=== PATIENT | male | born 1965 | race Hispanic/Latino ===

== ENCOUNTER → 2018-06-25 | Day surgery (SDC) | payer OTHER ==
[2018-06-23 14:33] LABS: ANION GAP 12.8 mmol/L (8-16); CALCIUM 10.1 mg/dL (8.4-10.2); CREATININE, SERUM 1.36 mg/dL (0.72-1.25); POTASSIUM 4.8 mmol/L (3.5-5.1)
[~2018-06-25] MED LIST: CEFTRIAXONE SOD 1 GM VIAL ONE; DEXAMETHASONE SOD PHOS INJ 4 MG/ML VIAL ONE; DEXTROSE 5% 250ML 250 ML IV ONE; EPHEDRINE SULFATE INJ 50 MG/10 ML SYR ONE; FARXIGA PO; FENTANYL CITRATE/PF 100MCG/2 ML INJ ONE; GLIMEPIRIDE2 MG PO; LIDOCAINE HCL 2% LOCAL INJ 5 ML SDV VIAL INJ ONE; LOSARTAN POTASS25 MG PO; LOVASTATIN40 MG PO; METFORMIN HCL850 MG PO; MIDAZOLAM HCL 2 MG/2 ML VIAL ONE; OMEPRAZOLE40 MG PO; ONDANSETRON HCL INJ 2 MG/ML VIAL ONE; PIOGLITAZONE HC45 MG PO; PROPOFOL IV EMULSION 10 MG/ML 20 ML VIAL ONE; ROCURONIUM BROMIDE 10 MG/ML 5ML VIAL ONE; SEVOFLURANE INHAL SOLN 250 ML PEN BTL ONE
--- NOTE | 2018-06-25 07:27 | Diagnostic Imaging Report ---
PROCEDURE:X-RAY ABDOMEN - KUB COMPARISON:None. INDICATIONS:RIGHT URETERAL STONE FINDINGS: There is a 4 mm calcification overlying the left kidney, which may represent a stone. No evidence of stone overlying the expected course of the ureters. Calcifications overlying the pelvis likely represent calcified phleboliths. Non-obstructive bowel gas pattern. No evidence of free intraperitoneal air. No acute bony abnormality. CONCLUSION: Possible 4 mm left renal stone. Likely calcified phleboliths in the pelvis without definite ureteral stone. Dictated by: MALAIKA LUTHER M.D. on 06/25/2018 at 7:35 Electronically approved by: MALAIKA LUTHER M.D. on 06/25/2018 at 7:35
--- NOTE | 2018-06-25 08:51 | Operative Report ---
DATE OF PROCEDURE: June 25, 2018 PREOPERATIVE DIAGNOSIS: Right ureteral stone. POSTOPERATIVE DIAGNOSIS: Right ureteral stone. PROCEDURES: 1. Staged right-sided shockwave lithotripsy. 2. Supervision of fluoroscopy. ANESTHESIA: General. ESTIMATED BLOOD LOSS: Minimal. COMPLICATIONS: None. INDICATIONS: Mr. Ferguson is 52-year-old male with symptomatic right-sided kidney stone. He and I had a long discussion regarding the alternatives, risks and benefits including doing nothing, shockwave lithotripsy, ureteroscopy, percutaneous surgery, and open surgery. He voiced understanding of the options, alternatives, risks and benefits, and elected to proceed. PROCEDURE IN DETAIL: After informed consent was obtained, the patient was taken to the operative suite. He was placed supine on the operating table. He underwent general anesthesia by the anesthesia services. Time out was taken. Site was confirmed. The stone was localized in X, Y, and Z planes. Treatment was performed per the treatment report. The patient tolerated the procedure well and was transported to the recovery room in excellent condition with no untoward effects noted. SUPERVISION OF FLUOROSCOPY: I was present throughout the entire procedure and I supervised the use of fluoroscopy. Details per treatment report. Job#: [id number]
[2018-06-25 09:30] VITALS: BP 146/80
== END | disposition home or self-care (01) ==
LOC: OR 05:48
PROVIDERS: ATTEND Urology
DX: N20.1 Calculus of ureter (principal); N20.0 Calculus of kidney; R81 Glycosuria; N28.1 Cyst of kidney, acquired; N13.30 Unspecified hydronephrosis; G47.33 Obstructive sleep apnea (adult) (pediatric); I10 Essential (primary) hypertension; E11.9 Type 2 diabetes mellitus without complications; Z01.810 Encounter for preprocedural cardiovascular examination; Z01.812 Encounter for preprocedural laboratory examination; Z79.84 Long term (current) use of oral hypoglycemic drugs; Z79.82 Long term (current) use of aspirin; Z68.41 Body mass index [BMI] 40.0-44.9, adult
CPT/HCPCS: 36415 ×2; 50590; 74018; 80048; 82948; 93005; J0696; J1100; J2001; J2250; J2405; J2704; J7070